=== PATIENT | male | born 1950 | race Caucasian/White ===

== ENCOUNTER 2021-01-27 12:31 | Emergency (ER) | payer BC ==
[~2021-01-27] VITALS: Ht 180.3 cm; Wt 89.0 kg
[~2021-01-27 12:31] MED LIST: ASPI-1071 PO; ATOR20TA66 PO; NO HOME MEDS
[2021-01-27 13:47] LABS: BASOPHILS # (AUTO) 0.1 X10'3 (0-0.2); BASOPHILS % (AUTO) 0.5 % (0-1); EOSINOPHILS # (AUTO) 0.4 X10'3 (0-0.9); EOSINOPHILS % (AUTO) 3.5 % (0-6); HEMATOCRIT 46.6 % (42.0-52.0); HEMOGLOBIN 16.1 g/dl (14.0-17.9); LYMPHOCYTES % (AUTO) 9.4 % (21-51); MEAN CORPUSCULAR HGB CONC 34.7 g/dL (33.0-36.5); MEAN CORPUSCULAR VOLUME 92.2 FL (78-98); MEAN PLATELET VOLUME 7.4 FL (7.4-10.4); MONOCYTES # (AUTO) 0.9 X10'3 (0-0.9); MONOCYTES % (AUTO) 8.7 % (2-12); NEUTROPHILS # (AUTO) 8.4 X10'3 (1.8-7.7); NEUTROPHILS % (AUTO) 77.9 % (42-75); PLATELET COUNT 205 X10'3 (140-440); RED BLOOD COUNT 5.05 X10'6 (4.70-6.10); RED CELL DISTRIBUTION WIDTH 12.9 % (11.5-14.5); WHITE BLOOD COUNT 10.7 X10'3 (4.5-11.0)
[2021-01-27 13:58] LABS: PARTIAL THROMBOPLASTIN TIME 25 SECONDS (22-32)
[2021-01-27 13:59] LABS: ALANINE AMINOTRANSFERASE 39 U/L (12-78); ALBUMIN 3.8 G/DL (3.4-5.0); ALBUMIN/GLOBULIN RATIO 1.3 (1.1-1.5); ALKALINE PHOSPHATASE 79 IU/L (46-116); ANION GAP 12 (8-16); ASPARTATE AMINO TRANSFERASE 75 U/L (10-37); BILIRUBIN,TOTAL 0.7 MG/DL (0.1-1.0); BLOOD UREA NITROGEN 12 MG/DL (7-18); BUN/CREATININE RATIO 12.8 (5.4-32.0); CALCIUM 8.8 MG/DL (8.5-10.1); CHLORIDE 104 MMOL/L (99-107); CREATININE 0.94 MG/DL (0.60-1.10); GLUCOSE 118 MG/DL (70-104); POTASSIUM 3.8 MMOL/L (3.5-5.1); SODIUM 142 MMOL/L (135-145); TOTAL PROTEIN 6.8 G/DL (6.4-8.2); eGFR 79 ML/MIN
[2021-01-27 15:50] LABS: CLARITY,URINE CLEAR (Clear); COLOR,URINE YELLOW (Yellow); GLUCOSE, URINE 100 mg/dl (Neg); KETONES,URINE NEGATIVE (Neg); LEUKOCYTE ESTERASE ,URINE NEGATIVE (Neg); NITRITES, URINE NEGATIVE (Neg); OCCULT BLOOD,URINE NEGATIVE (Neg); PH,URINE 5.5 (4.8-8.0); PROTEIN,URINE NEGATIVE (Neg); UROBILINOGEN,URINE 0.2 E.U/dL (0.2-1.0)
[2021-01-27 15:55] LABS: UA COLLECTION TYPE URINAL
[2021-01-27] MEDS ORDERED: LORazepam 2 mg/ml vial IV ONE ×2 (15:55→18:40)
[2021-01-27 16:14] LABS: URINE AMPHETAMINE SCREEN NEGATIVE (Neg); URINE BARBITUATE SCREEN NEGATIVE (Neg); URINE BENZODIAZEPINES SCREEN NEGATIVE (Neg); URINE CANNABINOID SCREEN NEGATIVE (Neg); URINE COCAINE SCREEN NEGATIVE (Neg); URINE METHADONE SCREEN NEGATIVE (Neg); URINE OPIATE SCREEN NEGATIVE (Neg); URINE PHENCYCLIDINE SCREEN NEGATIVE (Neg)
[2021-01-27] MEDS ORDERED: nicotine 14mg patch - 24hr TD ONE (18:00)
[2021-01-27] MEDS ORDERED: ASPI-611 PO (18:33)
[2021-01-27] MEDS ORDERED: ATOR40TA72 PO (18:43)
[2021-01-27] MEDS ORDERED: LISI20TA28 PO (18:43)
[2021-01-27] MEDS: oxyCODONE/APAP 5-325mg tablet PO ONE ×2 (19:00→19:32)
[2021-01-27] MEDS ORDERED: oxyCODONE/APAP 5-325mg tablet PO ONE (21:30)
[2021-01-28 03:45] VITALS: BP 128/76
[2021-01-28] MEDS ORDERED: dexamethasone sod phosphate 10mg/ml inj IV STA (03:55)
== END 2021-01-28 06:10 | disposition short-term general hospital (02) ==
LOC: ER 12:32
DX: I63.9 Cerebral infarction, unspecified (principal); M54.2 Cervicalgia; Z20.822 Contact with and (suspected) exposure to COVID-19; Z86.73 Personal history of transient ischemic attack (TIA), and cerebral infarction without residual deficits; Z85.841 Personal history of malignant neoplasm of brain; Z98.890 Other specified postprocedural states; Z88.8 Allergy status to other drugs, medicaments and biological substances; Z79.82 Long term (current) use of aspirin; Z79.899 Other long term (current) drug therapy
CPT/HCPCS: 36415; 70450; 70551; 71045; 72040; 80053; 80305; 81003; 82948; 85025; 85610; 85730; 86885; 86900; 86901; 87635; 93005; 96374; 96375; 96376; 99291; C9803; J1100; J2060; 99285